=== PATIENT | male | born 1955 | race Hispanic/Latino ===

== ENCOUNTER 2025-01-05 05:53 | Observation (INO) | payer OTHER ==
[2025-01-01 11:35] VITALS: BP 129/61; PULSE 60; RESP 18; TEMP 97.5
--- NOTE | 2025-01-01 11:35 | NUR ---
IS IS INITIAL TEACHING DONE BY RT [place]O
--- NOTE | 2025-01-01 13:41 | EKG ---
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
--- NOTE | 2025-01-02 09:45 | NUR ---
RE: EKG REPORTED ABNORMAL EKG RESULTS TO DR ADAMS, NO NEW ORDERS RECEIVED.
[2025-01-05] VITALS (24 sets, daily range): BP systolic 106–154; BP diastolic 50–91; PULSE 70–117; RESP 12–19; TEMP 97.2–98.2; O2SAT 96
[~2025-01-05] VITALS: Ht 177.8 cm; Wt 90.8 kg
[~2025-01-05 05:53] MED LIST: AMIT25TA21 PO; AMLO-257 PO; CARB15DR OP; CETI10TA87 PO; CYAN-37 PO; FLUO20TA29 PO; FLUT15.845 NS; LIDO700A30 TP; MONT-39 PO; OMEP20CA12 PO; PARA500W TP; PIME30CR TP; PSYL0.4C2 PO
[2025-01-05] MEDS ORDERED: LIDOCAINE PF 100MG/5ML (2%) SYRINGE 5ML ONE (06:50)
[2025-01-05] MEDS ORDERED: MIDAZOLAM HCL 1 MG/ML 2ML VIAL ONE (06:51)
[2025-01-05] MEDS ORDERED: SUCCINYLCHOLINE CHLORIDE 20 MG/ML 10 ML VIAL ONE (06:52)
[2025-01-05] MEDS: TRANEXAMIC ACID 1000MG/10ML ONE (07:47)
[2025-01-05] MEDS ORDERED: CALCIUM CARB 500MG PO PRN (08:00)
[2025-01-05] MEDS ORDERED: FERROUS FUMARATE 324 MG TABLET PO PRN (08:00)
[2025-01-05] MEDS ORDERED: PoTASSium chloRIDE 20MEQ ER 20 MEQ ERTAB PO PRN (08:00)
[2025-01-05] MEDS ORDERED: PoTASSium chl 10% ELIXIR 20MEQ 20 MEQ/15 ML UDCUP PO PRN (08:00)
--- NOTE | 2025-01-05 10:32 | HMCIMG ---
EXAM: CR right Knee, 2 View. CLINICAL HISTORY: S/P LEFT TKA SURGERY COMPARISON: None provided. FINDINGS: BONES: No acute fracture or aggressive appearing osseous lesion. JOINTS: Status post left knee arthroplasty. Hardware is intact. SOFT TISSUES: Postoperative changes are noted within the soft tissues. IMPRESSION: 1. Status post left knee arthroplasty with intact hardware. 2. No acute fracture or aggressive osseous lesion. /[place]
[2025-01-05] MEDS: LACTATED RINGERS 1000ML 1,000 ML IV ONE (11:00)
[2025-01-05] MEDS: SUGAMMADEX SODIUM 200 MG/2 ML VIAL IV ONE (11:00)
[2025-01-05] MEDS: 0.9%NACL 1000ML 1,000 ML IV SCH (11:41)
[2025-01-05] MEDS: ARTIFICAL TEARS SOL 15 ML OP SCH (13:00)
--- NOTE | 2025-01-05 15:00 | DS ---
Discharge Summary Hospital Course Summary: The patient was admitted to the hospital postoperatively on 01/05/2025 after undergoing left total knee arthroplasty. They did well with routine postoperative pain control. They worked well with physical therapy. They developed some acute blood loss anemia but remained asymptomatic. The hospital course was otherwise uncomplicated. They were subsequently able to be discharged on postoperative day [] once discharge arrangements were made with home health physical therapy. 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 Dressing may be removed on 01/07/25 and left open to air. Showers ok allowing soap and water to run over the wound. Pat dry. Do not submerge wound in tub/pool. Do not apply ointments. Do not apply Betadine. Do not apply peroxide. Ice packs to decrease pain/swelling. Prescriptions have been sent to the pharmacy: *[place] 5/325mg 1-2 tab every 6 hours as needed for severe pain. (please call for refills) Cyclobenzaprine 5mg 1 tab every 8 hours as needed for muscle spasm pain. Gabapentin 100mg 1 tab every 8 hours (may discontinue if drowsy). Colace 100mg 1 tab orally twice a day as needed for constipation. Resume your Plavix to prevent blood clots. Follow up at [facility] on 01/27/25 at 9:15 am Home Medications: Reported Medications Psyllium Husk (Metamucil) 0.4 Gram Capsule, 2 TSP PO BID for 30 Days, #60 CAP 0 Refills 01/01/25 Pimecrolimus (Elidel) 1 % Cream..g., 1 APPL TP DAILY for 7 Days, #30 GM 0 Refills apply to affected area(s) 01/01/25 Paraffin (Paraffin Wax) 500 Gm Wax, 500 GM TP QODAY, OZ 01/01/25 Omeprazole (Omeprazole) 20 Mg Capsule.dr, 20 MG PO DAILY, CAP 01/01/25 Montelukast Sodium (Montelukast Sodium) 10 Mg Tablet, 10 MG PO HS, TAB 01/01/25 Lidocaine (Lidocaine) 5 % Adh..patch, 1 PATCH TP QODAY for 30 Days, #30 PATCH 0 Refills 01/01/25 Fluticasone Propionate (Fluticasone Propionate) 50 Mcg/Actuation [place].susp, 2 SPRAY NS DAILY, #16 GM 0 Refills 01/01/25 Fluoxetine HCl (Fluoxetine HCl) 20 Mg Tablet, 20 MG PO DAILY, TAB 01/01/25 Cyanocobalamin (Vitamin B-12) (B-12) 1,000 Mcg Tablet, 1000 MCG PO DAILY, TAB 01/01/25 Cetirizine HCl (Cetirizine HCl) 10 Mg Tab.chew, 10 MG PO DAILY, TAB.CHEW 01/01/25 Carboxymethylcellulose Sodium (Refresh Tears) 0.5 % Drops, 1 DROP OP QID for 30 Days, #15 ML 0 Refills 01/01/25 Amlodipine Besylate (Amlodipine Besylate) 5 Mg Tablet, 5 MG PO DAILY, TAB 01/01/25 Amitriptyline HCl (Amitriptyline HCl) 25 Mg Tablet, 25 MG PO HS, TAB 01/01/25 KRYSTLE DEL REAL MD Jan 05, 2025 15:00
--- NOTE | 2025-01-05 15:03 | OP ---
Operative Note: DATE OF PROCEDURE: 01/05/25 PREOPERATIVE DIAGNOSIS: Left knee osteoarthritis. POSTOPERATIVE DIAGNOSIS: Left knee osteoarthritis. PROCEDURE PERFORMED: Left knee total knee arthroplasty. SURGEON: Nallely Casillas MD SHEET METAL ENGINEER: Chintan Matthew and Bea Rice. ANESTHESIA: General with adductor canal block. ANESTHESIA: EL Chowdary. ESTIMATED BLOOD LOSS: 50cc. COMPLICATIONS: None. DRAINS: None. SPECIMENS REMOVED: resected bone. Not sent to pathology. IMPLANTS: [place] [employer] [employer] II BCS size 7 Oxinium femur, size 6 tibial base plate, 35 x 7.5 mm patella, 10 mm polyethylene STATEMENT OF MEDICAL NECESSITY: The patient is a 69-year-old male who suffers from left knee osteoarthritis failing conservative management. After discussion of the risks, benefits, and alternatives with the patient, they voluntarily ag kesha to undergo the aforementioned procedure. DESCRIPTION OF PROCEDURE: Patient was properly identified in the preoperative holding area. Surgical site marking was verified and surgery consent reviewed. The patient was then taken to the operating room and placed in supine position on the OR table. After induction of general anesthesia, preoperative antibiotics were given, all bony prominences were well-padded, and a well padded tourniquet was applied but not inflated at this time. The left lower extremity was then prepped and draped in usual sterile fashion. Surgical time out was done verifying correct surgery, side, site, and location to be performed. We then began the procedure by exsanguinating the limb using an Esmarch and inflating the tourniquet to 350 mmHg. At this point, we made an anterior midline incision using a 10 blade, coming down sharply the level of the fascia. Skin flaps were elevated medially and laterally. We then obtained a clean 10 blade and performed a standard medial parapatellar arthrotomy. We excised the infrapatellar fat pad. We performed our soft tissue releases off of the tibia. We transected the ACL and removed the anterior portion of the medial & lateral meniscus. We then brought the knee into hyperflexion with the patella everted. We used our entry reamer to enter the femoral canal. We then placed our intramedullary cutting guide for our distal femoral cutting block. We then performed our distal femoral osteotomy ensuring appropriate rotation and removed the bony wafer. We then removed these pins and block and then used jig 2 to size the distal femur with the after mentioned size found. We then placed our 5-in-1 cutting block in 4.5 degrees of external rotation and took our 5 cuts ensuring to protect the patellar tendon and the collateral ligaments. We then removed the cutting block and our bony fragments using a curved osteotome. We then placed our PCL retractor subluxating the tibia anteriorly. Using an extra medullary tibial cutting guide, we hung the block for our proximal tibial cut taking 2 mm off the more diseased portion. Prior to pinning this block in place, we ensured appropriate varus/valgus alignment and posterior slope similar to the [place] slope of the patient's knee. We then performed our proximal tibial osteotomy and removed the bony wafer using Bovie electrocautery to release any remaining soft tissue attachments. We then used our tibial sizing paddle and checked once more for varus & valgus alignment and found this to be appropriate. At this point, we pinned our tibial paddle in place. We then removed the PCL retractor and subluxated the tibia posteriorly while we placed our femoral trial component. We then finished preparing the notch with the reamer and box chisel. The notch portion of the trial femoral component was then placed. A posterior stabilized polyethylene, size 9 trial was placed. The knee was then taken through range of motion and found to have stable full range of motion. We then placed a bump under the ankle and everted the patella to perform our freehand cut of the undersurface the patella. We then sized our patella and reamed to the lug holes for this. We placed our trial patellar component and begin to take the knee through range of motion. The patella had had significant lateral row tracking that partially improved with a lateral release. We elected to use the 7.5 mm thickness patella to assist with further addressing this. At this point we began removing our trial components and punched the tibial keel prior to removing our tibial trial component. Final components were opened and cement was mixed on the back table while we injected local cocktail in the posterior capsule. We then thoroughly irrigated out the bone and dried the bony surfaces. We cemented our tibial component in place ensuring to remove excess cement and placed our trial polyethylene. We then cemented our femoral component in place once again taking time to ensure excess cement was removed leg was brought into full extension to help squeeze th e excess cement from around the femoral component. We then brought the knee back in a flexion to remove this portion of the cement at this point we placed the ankle in a bump thoroughly irrigated off the patellar component and cemented our patellar component in standard fashion again removing excess cement. While we waited for the cement to cure, we thoroughly irrigated out the wound with normal saline. Once our cement had cured, we took the knee through a range of motion and found full and stable range of motion. We then elected to use the size 10 polyethylene and removed our trial polyethylene. We impacted our final polyethylene component in place in standard fashion and took the knee through a range of motion check once more. This was satisfactory so we began to repair the arthrotomy using #5 Ethibond and #1 Vicryl in interrupted [id number]-[id number] fashion. Subcutaneous tissue was repaired using 2-0 Vicryl. Running subcuticular 3-0 Monocryl stitch with Dermabond placed over this for the skin. We then applied a foam barrier dressing and a pressure dressing consisting of 4 x 4's fluffs and an Reese wrap. The tourniquet was then deflated. Patient was awakened from anesthesia, and they were taken to the recovery room in stable condition. NALLELY CASILLAS MD Jan 05, 2025 15:03
--- NOTE | 2025-01-05 16:19 | NUR ---
D/C PLAN CM spoke to patient at bedside regarding d/c planning. Patient reports he is independent with ADLs and lives with spouse. Denies having any home services. Reports he has the following DME: rollator walker, bedside commode, cane. CM discussed returning home with home health. Patient declined rehab and requesting home health. Also requesting walker without wheels. CM explained that request will be sent to [facility] for approval. Also notified patient that [facility] will be assigning home health and DME agency. Patient verbalized understanding. CM obtained JOSE for any in network DME and any in network home health agency. CM to fax request to [facility] and f/u. Addendum: 01/05/25 at 1623 by ROSEMARIE PORTER Amended: Links added.
[2025-01-05] MEDS: AMITRIPTYLINE 25 MG TABLET PO SCH (20:32)
[2025-01-05] MEDS: HYDROcodone/APAP 5/325 1 TAB TABLET PO PRN (20:34)
[2025-01-05] MEDS: PSYLLIUM HUSK PO SCH (20:39)
[2025-01-06 00:03] VITALS: BP 150/77; PULSE 89; RESP 19; TEMP 99
[2025-01-06 04:15] VITALS: BP 130/78; PULSE 78; RESP 18; TEMP 98.2
[2025-01-06 04:42] LABS: NUCLEATED RED BLOOD CELLS 0.0 % (0.0-0.19); PLATELET COUNT (AUTO) 112.0 K/uL (130-400); RED BLOOD CELL COUNT(AUTO) 3.74 MIL/uL (4.50-6.20); RED CELL DISTRIBUTION WIDTH 12.8 % (11.0-15.5); WHITE BLOOD COUNT (AUTO) 10.3 K/uL (4.8-10.8)
[2025-01-06 04:56] LABS: CREATININE 0.7 mg/dL (0.5-1.3); GLOMERULAR FILTR. RATE CALC 100.0 mL/min (>90); GLUCOSE,RANDOM 105.0 mg/dL (70-105); SODIUM SERUM 138.0 mmol/L (136-145); UREA NITROGEN, BLOOD 10.0 mg/dL (7-18)
[2025-01-06 07:39] VITALS: BP 105/59; PULSE 85; RESP 17; TEMP 98
--- NOTE | 2025-01-06 08:13 | PN ---
Ortho postop day one. This morning the patient is awake alert and oriented seated out of bed in a chair alternating extension and flexion. The dressing is intact. Gastrocnemius soft nontender. Negative Homans. Ice Present. Reese bandage has been removed and the dressing is intact anteriorly Vital signs have been stable. Afebrile. Laboratory results reviewed. Noted to have a drop in hemoglobin and hematocrit as expected after TKA. Patient is currently asymptomatic we will continue to observe and address per protocol as necessary. Operative findings discussed with the patient. Ambulated yesterday with physical therapy and is pending further physical therapy this morning. 100ft/150ft Anticipated discharge goal is HH/PT. Voiding on his own without difficulty. Passing gas but yet to have a bowel movement. Reinforced incentive spirometry. Assessment: Status post left TKA. Acute postoperative blood loss anemia Plan: Continue Dr. Casillas's TKA protocol and discharge planning Acute postoperative blood loss anemia addressed with the protocol as necessary Vitals/Labs Vital Signs Date Time Temp Pulse Resp B/P (MAP) Pulse Ox O2 Delivery O2 Flow Rate FiO2 01/06/25 07:39 98.1 85 17 105/59 96 Room Air 01/06/25 04:15 21 01/05/25 20:30 0 Laboratory Tests 01/06/25 04:35 Medications Current Medications Cefazolin Sodium 2 gm STK-MED ONCE .ROUTE Last administered on 01/05/25at 07:40; Start 01/05/25 at 06:08; Stop 01/05/25 at 06:08; Status DC Lactated Ringer's 1,000 ml @ As Directed STK-MED ONCE IV; Start 01/05/25 at 06:08; Stop 01/05/25 at 06:08; Status DC Lidocaine HCl 100 mg STK-MED ONCE .ROUTE; Start 01/05/25 at 06:50; Stop 01/05/25 at 06:51; Status DC Dexamethasone Sodium Phosphate 10 mg STK-MED ONCE .ROUTE; Start 01/05/25 at 06:51; Stop 01/05/25 at 06:51; Status DC Midazolam HCl 2 mg STK-MED ONCE .ROUTE; Start 01/05/25 at 06:51; Stop 01/05/25 at 06:51; Status DC Fentanyl Citrate 100 mcg STK-MED ONCE .ROUTE; Start 01/05/25 at 06:51; Stop 01/05/25 at 06:51; Status DC Phenylephrine HCl 10 mg STK-MED ONCE IV; Start 01/05/25 at 06:52; Stop 01/05/25 at 06:52; Status DC Succinylcholine Chloride 200 mg STK-MED ONCE .ROUTE; Start 01/05/25 at 06:52; Stop 01/05/25 at 06:52; Status DC Propofol 200 mg STK-MED ONCE IV; Start 01/05/25 at 06:52; Stop 01/05/25 at 06:52; Status DC Ephedrine Sulfate 50 mg STK-MED ONCE .ROUTE; Start 01/05/25 at 06:52; Stop 01/05/25 at 06:52; Status DC Ketamine HCl 50 mg STK-MED ONCE .ROUTE; Start 01/05/25 at 06:53; Stop 01/05/25 at 06:53; Status DC Rocuronium [place] 50 mg STK-MED ONCE .ROUTE; Start 01/05/25 at 06:53; Stop 01/05/25 at 06:53; Status DC Ropivacaine 150 mg STK-MED ONCE .ROUTE; Start 01/05/25 at 07:00; Stop 01/05/25 at 07:01; Status DC Tranexamic Acid 1,000 mg STK-MED ONCE .ROUTE Last administered on 01/05/25at 07:47; Start 01/05/25 at 07:16; Stop 01/05/25 at 07:16; Status DC Acetaminophen 100 ml @ As Directed STK-MED ONCE .ROUTE; Start 01/05/25 at 07:17; Stop 01/05/25 at 07:17; Status DC Ketorolac Tromethamine 30 mg STK-MED ONCE .ROUTE Last administered on 01/05/25at 08:39; Start 01/05/25 at 07:29; Stop 01/05/25 at 07:29; Status DC Ropivacaine 150 mg STK-MED ONCE .ROUTE Last administered on 01/05/25at 08:40; Start 01/05/25 at 07:29; Stop 01/05/25 at 07:29; Status DC Sodium Chloride 1,000 ml @ 100 mls/hr Q10H IV Last administered on 01/05/25at 11:41; Start 01/05/25 at 08:00; Stop 01/06/25 at 07:59; Status DC Polyethylene Glycol 17 gm DAILY PO Last administered on 01/05/25at 11:41; Start 01/05/25 at 09:00; Stop 02/04/25 at 08:59 Bisacodyl 10 mg DAILY PRN RC; Start 01/08/25 at 08:00; Stop 02/07/25 at 07:59 Ketorolac Tromethamine 15 mg Q6H PRN IV; Start 01/06/25 at 16:00; Stop 01/11/25 at 15:59 Ferrous Fumarate 324 mg DAILY PRN PO; Start 01/05/25 at 08:00; Stop 02/04/25 at 07:59 Ondansetron HCl 4 mg Q6H PRN IVP; Start 01/05/25 at 08:00; Stop 02/04/25 at 07:59 Calcium Carbonate 500 mg Q12H PRN PO; Start 01/05/25 at 08:00; Stop 02/04/25 at 07:59 Cefazolin Sodium 2 gm Q8H IVP; Start 01/05/25 at 13:00; Stop 01/05/25 at 11:40; Status DC Cyclobenzaprine HCl 5 mg Q8H PRN PO; Start 01/05/25 at 08:00; Stop 02/04/25 at 07:59 Gabapentin 100 mg TID PO Last administered on 01/05/25at 20:32; Start 01/05/25 at 09:00; Stop 02/04/25 at 08:59 Aspirin 325 mg DAILY PO; Start 01/06/25 at 09:00; Stop 02/05/25 at 08:59 Ketorolac Tromethamine 15 mg Q8H IV; Start 01/05/25 at 08:00; Stop 01/05/25 at 11:35; Status DC Docusate Sodium 100 mg BID PO Last administered on 01/05/25at 20:32; Start 01/05/25 at 09:00; Stop 02/04/25 at 08:59 Potassium Chloride 100 ml @ 100 mls/hr AD PRN IV; Start 01/05/25 at 08:00; Stop 02/04/25 at 07:59 Potassium Chloride 20 meq AD PRN PO; Start 01/05/25 at 08:00; Stop 02/04/25 at 07:59 Potassium Chloride 20 meq AD PRN PO; Start 01/05/25 at 08:00; Stop 02/04/25 at 07:59 Tramadol HCl 50 mg Q6H PRN PO; Start 01/05/25 at 08:00; Stop 01/10/25 at 07:59 Acetaminophen/ Hydrocodone Bitart Q4H PRN PO Last administered on 01/05/25at 20:34; Start 01/05/25 at 08:00; Stop 01/10/25 at 07:59 Rocuronium [place] 50 mg STK-MED ONCE .ROUTE; Start 01/05/25 at 08:10; Stop 01/05/25 at 08:10; Status DC Fentanyl Citrate 100 mcg STK-MED ONCE .ROUTE; Start 01/05/25 at 08:12; Stop 01/05/25 at 08:12; Status DC Amitriptyline HCl 25 mg HS PO Last administered on 01/05/25at 20:32; Start 01/05/25 at 21:00; Stop 02/04/25 at 20:59 Amlodipine Besylate 5 mg DAILY PO; Start 01/06/25 at 09:00; Stop 02/05/25 at 08:59 Vitamin B Complex 1,000 mcg DAILY PO; Start 01/06/25 at 09:00; Stop 02/05/25 at 08:59 Montelukast Sodium 10 mg HS PO Last administered on 01/05/25at 20:32; Start 01/05/25 at 21:00; Stop 02/04/25 at 20:59 Artificial Tears QID OP Last administered on 01/05/25at 20:39; Start 01/05/25 at 13:00; Stop 02/04/25 at 12:59 Cetirizine HCl 10 mg DAILY PO; Start 01/06/25 at 09:00; Stop 02/05/25 at 08:59 Fluoxetine HCl 20 mg DAILY PO; Start 01/06/25 at 09:00; Stop 02/05/25 at 08:59 Fluticasone Propionate DAILY EN; Start 01/06/25 at 09:00; Stop 02/05/25 at 08:59 Pantoprazole Sodium 40 mg DAILY PO; Start 01/06/25 at 09:00; Stop 02/05/25 at 08:59 Home Med (Psyllium Husk (Metamuc... BID PO; Start 01/05/25 at 21:00; Stop 02/04/25 at 20:59 Ketorolac Tromethamine 15 mg Q8H IV Last administered on 01/05/25at 23:59; Start 01/05/25 at 16:00; Stop 01/06/25 at 08:01; Status DC Cefazolin Sodium 2 gm Q8H IVP Last administered on 01/05/25at 23:59; Start 01/05/25 at 16:00; Stop 01/06/25 at 00:01; Status DC JOEY SIMON NP Jan 06, 2025 08:13
[2025-01-06 08:45] VITALS: O2SAT 96
[2025-01-06] MEDS: CYANOCOBALAMIN (VITAMIN B-12) 1,000 MCG TABLET PO SCH (08:56)
[2025-01-06] MEDS: ASPIRIN 325MG EC TAB PO SCH (08:57)
[2025-01-06] MEDS: amLODIPine 5 MG TAB PO SCH (08:57)
[2025-01-06 11:41] VITALS: BP 137/79; PULSE 86; RESP 18; TEMP 98.2
[2025-01-06 14:56] VITALS: BP 135/77; PULSE 92; RESP 17; TEMP 98.3
--- NOTE | 2025-01-06 16:05 | NUR ---
CM NOTE: VA VOUCHER CM MET WITH PT. MADE AWARE OF APPROVAL FOR [employer]. STILL PENDING VA APPROVAL AND DME DELIVERY. INFORMED PT MAY BORROW [facility] IF MD CLEARED PATIENT TO DC TODAY, DME LOAN CONSENT SIGNED. PATIENT HAS QUESTION ABOUT VOUCHER FOR HIS PAIN MEDICATION. INFORMED PT THAT THIS CM WILL GIVE PRIMARY NURSE RENETTA [facility] VOUCHER. PT TO BRING W/DR DEL REAL PRESCIPTION TO [facility] ONCE READY TO DC. PT VERBALIZED UNDERSTANDING. SAFE TO DC ONCE MD CLEARED. PRIMARY NURSE RENETTA AWARE. CM TO CONTINUE TO FOLLOW UP.
[2025-01-06] MEDS ORDERED: GABA100C PO (17:49)
[2025-01-06] MEDS ORDERED: CYCL-309 PO (17:49)
[2025-01-06] MEDS ORDERED: DOCU-116 PO (17:49)
[2025-01-06] MEDS ORDERED: HYDR-4060 PO (17:49)
--- NOTE | 2025-01-06 17:49 | NUR ---
DISCHARGE DISCHARGE ORDERS FOR PATIENT TO BE DISCHARGED HOME WITH HOME HEALTH PHYSICAL THERAPY OBTAINED. DISCHARGE INSTRUCTIONS AND DOCUMENTATION GIVEN TO PATIENT AND AT BEDSIDE. VOICED UNDERSTANDING. IV DISCONTINUED, CATHETER INTACT, NO S/S OF INFECTION NOTED TO AREA. PATIENT TOLERATED WELL. BANDS REMOVED PRIOR TO DISCHARGE. PENDING TRANSPORTATION.
[2025-01-06] MEDS: CYCLOBENZAPRINE HCL 10 MG TABLET PO PRN (17:54)
--- NOTE | 2025-01-06 18:25 | NUR ---
DISCHARGE REPORT CALLED IN TO [facility], SPOKE WITH RAMONITA FERRAAR AND PROVIDED REPORT ON PATIENT'S HISTORY, CONDITION AND MD'S ORDERS. VOICED UNDERSTANDING. ALL QUESTIONS ANSWERED.
--- NOTE | 2025-01-06 18:38 | NUR ---
DISCHARGE PATIENT LEFT VIA WHEELCHAIR ACCOMPANIED BY . NO S/S OF DISTRESS NOTED.
== END 2025-01-06 18:39 | disposition home or self-care (01) ==
LOC: DAH 05:53 → DAHIP 05:54 → 4AH 11:00
PROVIDERS: ADMIT Student in an Organized Health Care Education/Training Program; ATTEND Student in an Organized Health Care Education/Training Program
DX: M17.12 Unilateral primary osteoarthritis, left knee (principal); M25.562 Pain in left knee; G89.18 Other acute postprocedural pain; D62 Acute posthemorrhagic anemia; K21.9 Gastro-esophageal reflux disease without esophagitis; G47.33 Obstructive sleep apnea (adult) (pediatric); F43.10 Post-traumatic stress disorder, unspecified; I10 Essential (primary) hypertension; Z79.899 Other long term (current) drug therapy
CPT/HCPCS: 84134; 86140; 36415 ×2; 93005; 87641; 27447; 96376 ×2; 96365; 96375; 64447; 73560; 97161; 97116 ×4; 96366; 80048; 85027; 97530 ×2; G0378 ×35; A4663; A4649 ×2; J7120; J3010 ×2; J3490 ×5; J1100; J0330; J2003; J2250; J2704; J1885 ×4; J2795 ×2; J2371; J0690 ×3; C1713 ×2; C1776 ×2; A4930 ×2; A6255; A5120; A4215; A4223 ×2; A4213; A4222; A4221; A4216